=== PATIENT | female | born 1965 | race African-American/Black ===

== ENCOUNTER 2020-10-06 22:27 | Emergency (ER) | payer MEDICAID ==
[~2020-10-06] VITALS: Ht 162.6 cm; Wt 80.0 kg
[2020-10-07 01:45] LABS: BASOPHILS % 0.7 % (0.0-2.0); EOSINOPHILS % 2.3 % (0.0-5.0); HEMATOCRIT. 35.5 % (36.0-48.0); HEMOGLOBIN. 12.3 g/dL (12.0-16.0); MEAN CORPUSCULAR VOLUME 95.5 fL (81.0-99.0); MEAN PLATELET VOLUME 7.1 fl (7.4-10.4); MONOCYTES % 10.2 % (2.0-8.0); NEUTROPHILS % 42.8 % (40.0-76.0); PLATELET 321 x1000/uL (130-400); RED BLOOD CELL COUNT 3.72 mill/uL (4.2-5.4); RED CELL DISTRIBUTION WIDTH 13.8 % (11.6-14.6)
[2020-10-07 01:50] LABS: CHLORIDE 110 mEq/L (98-107)
[2020-10-07 02:01] LABS: B-HCG QUANTITATIVE < 1 mIU/mL (<3)
[2020-10-07] MEDS ORDERED: KETOROLAC 15MG/ML VIAL IV NR (02:30)
[2020-10-07 03:45] VITALS: BP 171/101
[2020-10-07] MEDS ORDERED: LOSARTAN POTASSIUM 50 MG TABLET PO ONE (03:45)
== END 2020-10-07 03:55 | disposition home or self-care (01) ==
LOC: ER 22:27
DX: D25.2 Subserosal leiomyoma of uterus (principal); R03.0 Elevated blood-pressure reading, without diagnosis of hypertension
CPT/HCPCS: 36415; 76856; 80053; 81025; 84702; 85025; 86850; 86900; 86901; 96374; 99284; J1885